=== PATIENT | male | born 1985 | race African-American/Black ===

== ENCOUNTER 2024-07-29 11:56 | Emergency (ER) | payer OTHER ==
[2024-07-29 12:01] VITALS: BP 120/74; PULSE 83; RESP 19; TEMP 98.5; BMI 25.1
== END 2024-07-29 14:19 | disposition home or self-care (01) ==
LOC: JERFT 11:56
DX: M62.830 Muscle spasm of back (principal); V49.09XA Driver injured in collision with other motor vehicles in nontraffic accident, initial encounter; Y99.0 Civilian activity done for income or pay
CPT/HCPCS: 72040-TC; 99283-25

== ENCOUNTER 2024-09-22 10:55 | Emergency (ER) | payer OTHER ==
[2024-09-22 11:11] VITALS: BP 122/78; PULSE 73; RESP 16; TEMP 98.6; BMI 25.1
[2024-09-22] MEDS ORDERED: LIDOCAINE 4% PATCH TP ONE (11:58)
[2024-09-22] MEDS ORDERED: IBUPROFEN 600 MG TABLET (FP) PO ONE (11:58)
[2024-09-22] MEDS ORDERED: ACETAMINOPHEN 500 MG TABLET (FP) ONE (11:59)
[2024-09-22] MEDS: IBUPROFEN 600 MG TABLET (FP) PO ONE (12:06)
[2024-09-22] MEDS: ACETAMINOPHEN 500 MG TABLET (FP) PO ONE (12:06)
[2024-09-22] MEDS: LIDOCAINE 4% PATCH TP ONE (12:07)
== END 2024-09-22 12:55 | disposition home or self-care (01) ==
LOC: JER 10:55 → JERFT 10:55
DX: M54.2 Cervicalgia (principal)
CPT/HCPCS: 99283-25